=== PATIENT | female | born 1980 | race Caucasian/White ===

== ENCOUNTER → 2021-06-18 12:39 | Outpatient (REF) | payer MEDICAID, SELFPAY ==
--- NOTE | 2021-06-18 12:44 | ECG_ITS ---
Hook-up date: 2021-06-18 12:57:00 Duration: 47:59:00 Test Indications: SYNCOPE Medications: 85152 QRS complexes * Ventricular ectopics which represent % of total QRS comp. * Supraventricular ectopics which represent % of total QRS comp. * Paced QRS complexs which represent % of total QRS comp. VENTRICULAR ECTOPY * Isolated * Bigeminal Cycles * Couplets * Runs * Beats in Runs * Beats LONGEST at * BPM at :: -- * Beats FASTEST at * BPM at :: -- SUPRAVENTRICULAR ECTOPY * Isolated * Couplets * Runs * Beats in Runs * Beats LONGEST at * BPM at :: -- * Beats FASTEST at * BPM at :: -- HEART RATES 37 MIN at 02:05:07 2021-06-19 56 AVG 103 MAX at 15:01:21 2021-06-18 LONGEST RR 1.8320 secs at 04:31:28 2021-06-19 S-T LEVELS Channel 1 - 128 mm at 12:57:00 2021-06-18 - 128 mm at 12:57:00 2021-06-18 Channel 2 - 128 mm at 12:57:00 2021-06-18 - 128 mm at 12:57:00 2021-06-18 Channel 3 - 128 mm at 03:21:61 -- - 128 mm at 03:21:61 Underlying rhythm is sinus; Average rate 56/min; range 37-103/min; About 67% of the time, rate ,60/min; No significant arrhythmias; Patient did not report any symptoms in the diary Referred By: Negro Cadet Overread By: KRISTINA NOYOLA
== END ==
LOC: HO.CARD 12:39
PROVIDERS: Visit Provider Internal Medicine
DX: O26.892 Other specified pregnancy related conditions, second trimester (principal); R55 Syncope and collapse
CPT/HCPCS: 93225; 93226

== ENCOUNTER → 2021-07-23 13:59 | Outpatient (REF) | payer MEDICAID, SELFPAY ==
--- NOTE | 2021-07-23 14:00 | CA_ITS ---
Transthoracic Echocardiogram Patient (Last, First, Middle): Malissa Angeles, Gender: Female Date of : 1980 Age: 40 Procedure Date: 07/23/2021 Procedure Type: Transthoracic Echocardiogram Location: OP Height: 180.34 cm Weight: 72.58 kg BSA: 1.92 m2 Heart Rate: bpm BP: 125 / 78 mmHg Baker Test: KAYLYN Referring MD: Negro Cadet MD Symptoms: PALPITATIONS, SYNCOPE COLLAPSE R00.2 R55 Study Quality: Good ECG Rhythm: Sinus Conclusions: - The left ventricular systolic function is normal. The visually estimated ejection fraction is between 65-70%. - No obvious valvular pathology seen on this study. Findings Left Ventricle Normal left ventricular cavity size. There is normal left ventricular wall thickness. The left ventricular systolic function is normal. The visually estimated ejection fraction is between 65-70%. There is no evidence of regional wall motion abnormalities. Diastolic function is normal for age. Right Ventricle Normal right ventricular cavity size and systolic function. Atria Both atria are normal in size. Aortic Valve There is a normal trileaflet aortic valve. There is no aortic valve stenosis. There is no aortic valve regurgitation. Mitral Valve The mitral valve appears normal. There is no mitral valve regurgitation. There is no mitral valve stenosis. Pulmonic Valve The pulmonic valve was not well visualized. Tricuspid Valve Normal tricuspid valve structure. There is trace tricuspid valve regurgitation. The pulmonary artery systolic pressure is normal. Great Vessels The aortic annulus, sinuses of valsalva, asc aorta, and aortic arch are normal in size. Venous The inferior vena cava is normal in size and collapses greater than 50% with inspiration. Pericardium/Pleural There is no evidence of pericardial effusion. Prior Study Comparison No prior study available for comparison. Recommendations, Care & Conclusions No obvious valvular pathology seen on this study. Measurements 2D Linear Measurements IVSd: 1.01 0.6-0.9/0.6-1.0 cm LVIDd: 4.28 3.9-5.3/4.2-5.9 cm LVIDd Index: 2.23 2.4-3.2/2.2-3.1 cm/m2 LVIDs: 2.39 2.0-3.6 cm LVPWd: 1.23 0.7-1.1 cm Ao Root: 2.70 2.1-3.5 cm LA Diam: 3.50 2.7-3.8/3.0-4.0 cm LAIDs Index: 1.82 1.5-2.3 cm/m2 LV Mass: 206.72 67-162/88-224 g LV Mass Index: 107.66 43-95/49-115 g/m2 LVOT Diam: 2.00 3.0+(-)1.3 cm 2D Systolic Function EF 4C: 62.20 >55% EF 2C: 64.50 >55% EF BiP: 62.20 >55% Mitral Valve MV Pk E: 0.98 MV PK A: 0.97 MV Decel Time: 269.00 E/A: 1.00 E'Lateral: 12.80 E'Medial: 7.62 E/E' Med: 12.80 E/E' Lat: 7.60 PHT: 79.00 MVA PHT: 2.78 Decel [place]: 3.64 Aortic Valve AoV Pk Robert: 2.36 AoV Mn Robert: 1.52 AoV VTI: 0.50 AoV Pk Grad: 22.00 Aov Mn Grad: 11.00 YANIV Cont.VTI: 2.39 LVOT LVOT Pk Robert: 1.66 LVOT Mn Robert: 1.13 LVOT VTI: 0.38 LVOT Pk Grad: 11.00 LVOT Mn Grad: 6.00 LVOT Diam: 2.00 LVOT Area: 3.14 Diastolic Function MV Pk E: 0.98 MV Pk A: 0.97 E/A: 1.00 E'Medial: 7.62 E/E' Med: 12.80 E' Laterial: 12.80 E/E' Lat: 7.60 Right Ventricle TAPSE (mm): 26.70 TVS' Robert: 13.20 Tricuspid Valve TR Pk Robert: 1.70 TR Pk Grad: 12.00 RA Press: 3.00 RVSP: 15.00 Great Vessels Aorta Ao Root-2D: 2.70 2.0-3.7 cm Ao Asc: 3.00 2.1-3.4 cm Ao Arch: 2.70 Updated in Other Vendor System with Status of Final Eren Ramey MD electronically signed on 07/25/2021 11:01:44 AM with status of Final
== END ==
LOC: HO.CARD 13:59
PROVIDERS: Visit Provider Internal Medicine
DX: R00.2 Palpitations (principal); R55 Syncope and collapse
CPT/HCPCS: 93306